=== PATIENT | female | born 1960 | race Hispanic/Latino ===

== ENCOUNTER → 2018-12-11 | Outpatient (CLI) | payer OTHER ==
--- NOTE | 2018-12-11 10:55 | Diagnostic Imaging Report ---
Exam: Right knee-3 views; left knee-3 views History: Bilateral knee osteoarthritis. Comparison: None. Findings: There are moderate bilateral knee medial compartment predominant tricompartmental osteoarthritis with joint space narrowing, subchondral sclerosis, and bony osteophyte formation. No evidence of acute fracture, malalignment, or soft tissue abnormality. No suprapatellar joint effusion. Impression: Moderate bilateral knee medial compartment predominant tricompartmental osteoarthritis. Signed by: Dr. Elian Dewey MD on 12/11/2018 10:51 AM
--- NOTE | 2018-12-11 11:01 | Diagnostic Imaging Report ---
EXAM: Lumbar spine radiographs-5 views INDICATION: Lumbar radiculopathy. COMPARISON: None FINDINGS: BONES: There is grade 1 anterolisthesis of L4 on L5. There is minimal retrolisthesis of L3 on L4 and L5 on S1. No acute displaced fractures. Vertebral body heights are preserved. DISCS: Degenerative disc changes, most pronounced at L5-S1. JOINTS: Mild facet degenerative changes, most pronounced in the lower lumbar spine. No severe neural foraminal stenosis. The sacroiliac joints are unremarkable. SOFT TISSUES: Cholecystectomy clips in the right upper abdomen. Two radiopaque densities project over the pelvis. IMPRESSION: No acute lumbar spine radiographic findings. Mild degenerative disc and facet degenerative changes, most pronounced in the lower lumbar spine. Signed by: Dr. Elian Dewey MD on 12/11/2018 10:57 AM
== END ==
LOC: RAD 09:20
PROVIDERS: ATTEND Family Medicine
DX: M17.0 Bilateral primary osteoarthritis of knee (principal)
CPT/HCPCS: 72110

== ENCOUNTER → 2019-01-07 | Outpatient (CLI) | payer OTHER ==
--- NOTE | 2019-01-07 18:02 | Diagnostic Imaging Report ---
EXAM: Complete Abdominal Ultrasound INDICATION: Elevated liver enzymes. COMPARISON: None. TECHNIQUE: Transverse and longitudinal images of the upper abdomen were obtained. FINDINGS: Liver: Size: 15.9 cm in the right midclavicular line, borderline enlarged Appearance: mildly increased in echogenicity, smooth contour Mass: No focal masses Spleen: Size: 8.5 cm in length, normal Echogenicity: Normal Mass: No focal masses Gallbladder: Absent. Bile Ducts: Intrahepatic Ducts: No dilatation Extrahepatic Ducts: Common bile duct measures 0.4 cm, no dilatation Pancreas: Not well visualized due to overlying bowel gas. Kidneys: Length: Right 11.3 cm Left 10.4 cm Echogenicity: Normal Collecting System: No hydronephrosis Stone: None Cyst/Mass: None Vessels: Aorta: Visualized portions are normal Inferior Vena Cava: Visualized portions are normal Main Portal Vein: 0.8 cm, normal size with hepatopetal flow. Free Fluid: No ascites or pleural effusion IMPRESSION: 1. Borderline hepatomegaly and hepatic steatosis. Signed by: Dr. Parviz Simmons M.D. on 01/07/2019 5:56 PM
== END ==
LOC: US 17:08
PROVIDERS: ATTEND Family Medicine
DX: R74.8 Abnormal levels of other serum enzymes (principal)
CPT/HCPCS: 76700

== ENCOUNTER 2019-01-22 11:06 | Outpatient (RCR) | payer OTHER | END 2019-02-07 | LOC: PT 11:06 | PROVIDERS: ATTEND Specialist | DX: M17.0 Bilateral primary osteoarthritis of knee (principal) ==

== ENCOUNTER 2021-07-19 13:55 | Emergency (ER) | payer BC, OTHER ==
[~2021-07-19] VITALS: Ht 149.9 cm; Wt 86.2 kg
[2021-07-19] MEDS ORDERED: CYCLOBENZAPRINE10 MG PO (14:33)
[2021-07-19] MEDS ORDERED: LIDOCAINE1 EAC1 TD (14:33)
== END 2021-07-19 17:30 | disposition home or self-care (01) ==
LOC: ER 13:59
DX: M79.605 Pain in left leg (principal); M79.604 Pain in right leg; M79.18 Myalgia, other site
CPT/HCPCS: 93970; 99283